=== PATIENT | female | born 1995 | race Caucasian/White ===

== ENCOUNTER 2020-02-12 09:23 | Outpatient (CLI) | payer BC, OTHER ==
[~2020-02-12] VITALS: Ht 165.1 cm; Wt 126.0 kg
[2020-02-12 09:49] VITALS: BP 135/72
[2020-02-12 10:04] LABS: BASOPHILS % (AUTO) 1 % (0-1); EOSINOPHILS % (AUTO) 6 % (1-7); LYMPHOCYTES % (AUTO) 15 % (22-44); MEAN CORPUSCULAR HEMOGLOBIN 26.6 pg (27.0-34.8); MEAN CORPUSCULAR HGB CONC 32.3 g/dL (32.4-35.8); MEAN PLATELET VOLUME 10.5 fL (7.4-10.4); MONOCYTES % (AUTO) 10 % (2-9); NEUTROPHILS % (AUTO) 69 % (42-75); PLATELET COUNT 291 x10^3/uL (130-400); RED BLOOD COUNT 4.79 x10^6/uL (3.82-5.3)
[2020-02-12 10:14] LABS: ALBUMIN 2.4 g/dL (3.4-5.0); ANION GAP 8 mmol/L (5-15); CALCIUM 8.9 mg/dL (8.5-10.1); CHLORIDE 109 mmol/L (98-107); CREATININE 0.46 mg/dL (0.55-1.02)
[2020-02-12 10:16] LABS: MICROSCOPIC INDICATED
[2020-02-12 10:18] LABS: ALKALINE PHOSPHATASE 170 U/L (45-117); TOTAL PROTEIN 7.2 g/dL (6.4-8.2)
[2020-02-12 10:29] LABS: MD SCAN
[2020-02-12 10:32] LABS: ALANINE AMINOTRANSFERASE 14 U/L (12-78); BILIRUBIN,TOTAL 0.2 mg/dL (0.2-1.0)
[2020-02-12] MEDS ORDERED: BETAMETHASONE 6 MG/ML, 5ML IM ONE (10:54)
[2020-02-12] MEDS ORDERED: BETAMETHASONE 6 MG/ML, 5ML IM SCH (11:00)
== END 2020-02-12 11:18 | disposition home or self-care (01) ==
LOC: LDOP 09:23
PROVIDERS: ATTEND Obstetrics & Gynecology
DX: O13.3 Gestational [pregnancy-induced] hypertension without significant proteinuria, third trimester (principal); Z3A.36 36 weeks gestation of pregnancy
CPT/HCPCS: 36415; 59025; 80053; 81001; 82570; 84156; 84550; 85025; 87086; 96372; J0702

== ENCOUNTER 2020-02-13 11:13 | Outpatient (CLI) | payer BC ==
[2020-02-13] MEDS ORDERED: BETAMETHASONE 6 MG/ML, 5ML IM ONE (12:00)
== END 2020-02-13 12:13 | disposition home or self-care (01) ==
LOC: LDOP 11:13
PROVIDERS: ATTEND Obstetrics & Gynecology
DX: O13.3 Gestational [pregnancy-induced] hypertension without significant proteinuria, third trimester (principal); Z3A.36 36 weeks gestation of pregnancy
CPT/HCPCS: 59025; 96372; J0702

== ENCOUNTER 2020-02-20 10:15 | Inpatient (IN) | payer BC ==
[~2020-02-20] VITALS: Ht 165.1 cm; Wt 126.4 kg
[2020-02-20] MEDS: LACTATED RINGERS 1,000 ML IV SCH ×2 (10:20→17:05)
[2020-02-20] MEDS ORDERED: TERBUTALINE 1 MG/ML, 1ML SQ PRN (10:30)
[2020-02-20] MEDS ORDERED: OXYTOCIN 30U/ 0.9% NaCL 500ML 500 ML IV ONE (10:30)
[2020-02-20] MEDS ORDERED: FENTANYL PF 100 MCG/2ML IV PRN (10:30)
[2020-02-20] MEDS ORDERED: CALCIUM CARBONATE 500 MG TAB.CHEW PO PRN (10:30)
[2020-02-20] MEDS ORDERED: TERBUTALINE 1 MG/ML, 1ML IVPush PRN (10:30)
[2020-02-20] MEDS ORDERED: OXYTOCIN 30U/ 0.9% NaCL 500ML 500 ML IV PRN (10:30)
[2020-02-20] MEDS ORDERED: ONDANSETRON 2MG/ML, 2ML IVPush PRN (10:30)
[2020-02-20] MEDS ORDERED: PLEASE ENTER HEIGHT AND WEIGHT MC SCH (11:00)
[2020-02-20 11:12] LABS: BASOPHILS % (AUTO) 1 % (0-1); EOSINOPHILS % (AUTO) 1 % (1-7); LYMPHOCYTES % (AUTO) 15 % (22-44); MEAN CORPUSCULAR HEMOGLOBIN 26.3 pg (27.0-34.8); MEAN CORPUSCULAR HGB CONC 32.1 g/dL (32.4-35.8); MEAN PLATELET VOLUME 10.5 fL (7.4-10.4); MONOCYTES % (AUTO) 11 % (2-9); NEUTROPHILS % (AUTO) 72 % (42-75); PLATELET COUNT 273 x10^3/uL (130-400); RED CELL DISTRIBUTION WIDTH 15.3 % (9.6-15.2)
[2020-02-20 11:22] LABS: ALANINE AMINOTRANSFERASE 13 U/L (12-78); ALBUMIN 2.5 g/dL (3.4-5.0); ANION GAP 9 mmol/L (5-15); CHLORIDE 108 mmol/L (98-107); CREATININE 0.48 mg/dL (0.55-1.02)
[2020-02-20 11:24] LABS: ALKALINE PHOSPHATASE 163 U/L (45-117); BILIRUBIN, DIRECT < 0.1 mg/dL (0.1-0.2); BILIRUBIN,TOTAL 0.2 mg/dL (0.2-1.0); TOTAL PROTEIN 7.1 g/dL (6.4-8.2)
[2020-02-20] MEDS ORDERED: OXYTOCIN 30U/ 0.9% NaCL 500ML 500 ML ONE (11:24)
[2020-02-20] MEDS ORDERED: LIDOCAINE 1%, 20ML ONE (11:24)
[2020-02-20] MEDS ORDERED: MISOPROSTOL 200 MCG TABLET ONE (11:24)
[2020-02-20] MEDS ORDERED: MISOPROSTOL 25 MCG TABLET ONE ×3 (11:24→22:22)
[2020-02-20] MEDS: MISOPROSTOL 25 MCG TABLET VG PRN ×3 (11:33→22:27)
[2020-02-20] MEDS ORDERED: PREN1TAB62 PO (11:49)
[2020-02-20 11:50] LABS: MD SCAN
[2020-02-20] MEDS ORDERED: NEWBORN KIT ONE (16:01)
[2020-02-20] MEDS: OXYTOCIN 30U/ 0.9% NaCL 500ML 500 ML IV PRN (16:25)
[2020-02-20] MEDS ORDERED: ZOLPIDEM 5MG TABLET ONE (22:23)
[2020-02-20] MEDS ORDERED: ZOLPIDEM 5MG TABLET PO PRN (22:30)
[2020-02-21] MEDS ORDERED: OXYTOCIN 30U/ 0.9% NaCL 500ML 500 ML IV PRN (02:00)
[2020-02-21] MEDS ORDERED: FENTANYL PF 100 MCG/2ML ONE ×2 (02:43→03:57)
[2020-02-21] MEDS: FENTANYL PF 100 MCG/2ML IVPush PRN ×2 (02:45→04:04)
[2020-02-21] MEDS: LACTATED RINGERS 1,000 ML IV SCH ×5 (04:51→23:04)
[2020-02-21] MEDS ORDERED: FENTANYL/BUPIV./NS/PF 250 ML EPIDCONT ONE (06:07)
[2020-02-21] MEDS ORDERED: FENTANYL/BUPIV./NS/PF 250 ML EPIDCONT SCH (07:00)
[2020-02-21] MEDS ORDERED: LACTATED RINGERS 1,000 ML IVBOLUS PRN (07:00)
[2020-02-21] MEDS ORDERED: LACTATED RINGERS 1,000 ML IV SCH (07:00)
[2020-02-21] MEDS ORDERED: NALOXONE 0.4 MG/ML, 1ML IVPush PRN (07:00)
[2020-02-21] MEDS ORDERED: EPHEDRINE 50 MG/ML, 1ML IVPush PRN (07:00)
[2020-02-21] MEDS ORDERED: OXYTOCIN 30U/ 0.9% NaCL 500ML 500 ML ONE (14:49)
[2020-02-21] MEDS: OXYTOCIN 30U/ 0.9% NaCL 500ML 500 ML IV SCH (14:52)
[2020-02-21] MEDS ORDERED: ACETAMINOPHEN 325 MG TABLET PO PRN (15:00)
[2020-02-21] MEDS ORDERED: OXYTOCIN 10 UNITS/ML, 1ML IM PRN (15:00)
[2020-02-21] MEDS ORDERED: HYDROcodone/APAP 5/325 TABLET PO PRN ×2 (15:00)
[2020-02-21] MEDS ORDERED: MISOPROSTOL 200 MCG TABLET PR PRN (15:00)
[2020-02-21] MEDS ORDERED: ONDANSETRON 2MG/ML, 2ML IV PRN (15:00)
[2020-02-21] MEDS ORDERED: CARBOPROST TROMETHAMINE 250 MCG/ML, 1ML IM PRN (15:00)
[2020-02-21] MEDS ORDERED: SIMETHICONE 80 MG CHEW TAB PO PRN (15:00)
[2020-02-21] MEDS ORDERED: METHYLERGONOVINE 0.2 MG/ML IM PRN (15:00)
[2020-02-21] MEDS ORDERED: LABETALOL 100 MG TABLET ONE (15:52)
[2020-02-21] MEDS: LABETALOL 100 MG TABLET PO SCH (15:56)
[2020-02-21] MEDS ORDERED: IBUPROFEN 600 MG TABLET ONE (16:03)
[2020-02-21] MEDS: IBUPROFEN 600 MG TABLET PO PRN ×2 (16:05→23:28)
[2020-02-21 16:35] VITALS: BP 125/79
[2020-02-21 19:55] VITALS: BP 131/70
[2020-02-21] MEDS: DOCUSATE 100 MG CAPSULE PO PRN (20:38)
[2020-02-22 00:20] VITALS: BP 138/81
[2020-02-22] MEDS: OXYTOCIN 30U/ 0.9% NaCL 500ML 500 ML IV SCH ×2 (00:32→00:34)
[2020-02-22] MEDS: LACTATED RINGERS 1,000 ML IV SCH (00:32)
[2020-02-22] MEDS: OXYTOCIN 30U/ 0.9% NaCL 500ML 500 ML IV PRN (00:33)
[2020-02-22 02:32] LABS: BASOPHILS % (AUTO) 0 % (0-1); EOSINOPHILS % (AUTO) 2 % (1-7); LYMPHOCYTES % (AUTO) 17 % (22-44); MEAN CORPUSCULAR HEMOGLOBIN 26.6 pg (27.0-34.8); MEAN CORPUSCULAR HGB CONC 32.1 g/dL (32.4-35.8); MEAN PLATELET VOLUME 10.5 fL (7.4-10.4); MONOCYTES % (AUTO) 12 % (2-9); NEUTROPHILS % (AUTO) 69 % (42-75); PLATELET COUNT 242 x10^3/uL (130-400); RED CELL DISTRIBUTION WIDTH 15.4 % (9.6-15.2)
[2020-02-22 03:39] LABS: ANISOCYTOSIS 1+; MD MORPH REVIEW ONLY
[2020-02-22 03:40] LABS: <PLATELET ESTIMATE> ADEQUATE; LARGE PLATELETS 1+; MICROCYTOSIS 1+; OVALOCYTES 1+
[2020-02-22 04:07] VITALS: BP 123/77
[2020-02-22] MEDS: DOCUSATE 100 MG CAPSULE PO PRN ×2 (07:47→22:21)
[2020-02-22] MEDS: PRENATAL VIT/IRON/FA 1 EACH TABLET PO SCH (07:47)
[2020-02-22] MEDS: IBUPROFEN 600 MG TABLET PO PRN ×2 (07:47→22:21)
[2020-02-22] MEDS: LABETALOL 100 MG TABLET PO SCH ×2 (07:48→17:39)
[2020-02-22 07:55] VITALS: BP 139/83
[2020-02-22 11:11] VITALS: BP 121/79
[2020-02-22 16:00] VITALS: BP 125/76
[2020-02-22 20:00] VITALS: BP 131/77
[2020-02-23] MEDS: OXYTOCIN 30U/ 0.9% NaCL 500ML 500 ML IV SCH (07:00)
[2020-02-23 07:15] VITALS: BP 118/79
[2020-02-23] MEDS: LABETALOL 100 MG TABLET PO SCH (07:58)
[2020-02-23] MEDS: PRENATAL VIT/IRON/FA 1 EACH TABLET PO SCH (07:58)
[2020-02-23] MEDS ORDERED: IBUP-1222 PO (08:13)
[2020-02-23] MEDS ORDERED: OXYC-302 PO (08:13)
[2020-02-23] MEDS ORDERED: DOCU-131 PO (08:13)
[2020-02-23] MEDS ORDERED: LABE200T6 PO (08:13)
[2020-02-23] MEDS: IBUPROFEN 600 MG TABLET PO PRN (10:07)
== END 2020-02-23 12:31 | disposition home or self-care (01) | DRG 807 ==
LOC: LDOP 10:15 → LDIP 10:33 → 2NW 02-21 16:26
PROVIDERS: ADMIT Obstetrics & Gynecology; ATTEND Obstetrics & Gynecology
PROC: 10E0XZZ Delivery of Products of Conception, External Approach (ICD-10-PCS; principal; 2020-02-21)
PROC: 0KQM0ZZ Repair Perineum Muscle, Open Approach (ICD-10-PCS; 2020-02-21)
PROC: 3E033VJ Introduction of Other Hormone into Peripheral Vein, Percutaneous Approach (ICD-10-PCS; 2020-02-21)
PROC: 3E0P7VZ Introduction of Hormone into Female Reproductive, Via Natural or Artificial Opening (ICD-10-PCS; 2020-02-21)
PROC: 3E0R3BZ Introduction of Anesthetic Agent into Spinal Canal, Percutaneous Approach (ICD-10-PCS; 2020-02-21)
PROC: 00HU33Z Insertion of Infusion Device into Spinal Canal, Percutaneous Approach (ICD-10-PCS; 2020-02-21)
DX: O13.4 Gestational [pregnancy-induced] hypertension without significant proteinuria, complicating childbirth (principal); Z37.0 Single live birth; Z3A.37 37 weeks gestation of pregnancy; E66.01 Morbid (severe) obesity due to excess calories; O99.52 Diseases of the respiratory system complicating childbirth; O99.214 Obesity complicating childbirth; J45.909 Unspecified asthma, uncomplicated; O12.14 Gestational proteinuria, complicating childbirth; O69.1XX0 Labor and delivery complicated by cord around neck, with compression, not applicable or unspecified; O70.1 Second degree perineal laceration during delivery; Z20.828 Contact with and (suspected) exposure to other viral communicable diseases; Z91.013 Allergy to seafood
CPT/HCPCS: 36415; 80053; 82248; 82570; 84156; 84550; 85025; 86592; 86850; 86900; 87635; G0378; J3010; J2590; J7120

== ENCOUNTER 2020-08-31 17:33 | Emergency (ER) | payer BC, MEDICAID ==
[~2020-08-31] VITALS: Ht 165.1 cm; Wt 108.4 kg
[~2020-08-31 17:33] MED LIST: DOCU-131 PO; IBUP-1222 PO; LABE200T6 PO; OXYC1TAB14 PO; PREN1TAB62 PO
--- NOTE | 2020-08-31 19:08 | NUR ---
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 NO ACUTE DISTRESS NOTED AT THIS TIME.
[2020-08-31] MEDS ORDERED: CYCLOBENZAPRINE 10 MG TABLET PO ONE (19:30)
[2020-08-31] MEDS ORDERED: ONDANSETRON ODT 4 MG PO ONE (19:30)
[2020-08-31] MEDS ORDERED: HYDROcodone/APAP 5/325 TABLET PO ONE (19:30)
[2020-08-31] MEDS ORDERED: ONDANSETRON ODT 4 MG ONE (19:50)
[2020-08-31] MEDS ORDERED: CYCLOBENZAPRINE 10 MG TABLET ONE (19:51)
[2020-08-31] MEDS ORDERED: HYDROcodone/APAP 5/325 TABLET ONE (19:51)
[2020-08-31] MEDS ORDERED: PLEASE ENTER ALLERGIES MC SCH (20:00)
--- NOTE | 2020-08-31 20:29 | NUR ---
PT TO MRI AT THIS TIME.
[2020-08-31 20:55] VITALS: BP 137/59
== END 2020-08-31 22:06 | disposition home or self-care (01) ==
LOC: ED 22:00
DX: M79.661 Pain in right lower leg (principal); R20.2 Paresthesia of skin; M54.5 Low back pain; J45.909 Unspecified asthma, uncomplicated
CPT/HCPCS: 72148; 99284; J7512; Q0162